=== PATIENT | male | born 1980 | race African-American/Black ===

== ENCOUNTER 2018-03-12 23:35 | Observation (INO) ==
[2018-03-13 00:26] LABS: Baso % (Auto) 0.4 % (0.0-2.0); Eos # (Auto) 0.1 th/mm3 (0.0-0.4); Eos % (Auto) 1.3 % (0.0-4.0); Hematocrit 34.2 % (39.0-51.0); Hemoglobin 11.9 gm/dL (13.0-17.0); Lymph # (Auto) 1.8 th/mm3 (1.0-4.8); Mean Corpuscular HGB Conc 34.7 % (32.0-36.0); Mean Corpuscular Hemoglobin 31.1 pg (27.0-34.0); Mean Corpuscular Volume 89.5 fL (80.0-100.0); Mean Platelet Volume 7.4 fL (7.0-11.0); Mono # (Auto) 0.8 th/mm3 (0.0-0.9); Neut # (Auto) 5.2 th/mm3 (1.8-7.7); Neut % (Auto) 65.3 % (16.0-70.0); Platelet Count 197 th/mm3 (150-450); Red Blood Count 3.82 mil/mm3 (4.50-5.90)
[2018-03-13 00:44] LABS: Alanine Aminotransferase 25 U/L (12-78); Albumin 2.9 g/dL (3.4-5.0); Anion Gap 9 meq/L (5-15); Aspartate Aminotransferase 24 U/L (15-37); Blood Urea Nitrogen 51 mg/dL (7-18); Calcium 7.6 mg/dL (8.5-10.1); Carbon Dioxide 31.5 meq/L (21.0-32.0); Chloride 99 meq/L (98-107); Glomerular Filtration Rate 5 mL/min (>89); Glucose,Random 145 mg/dL (74-106); Potassium 3.1 meq/L (3.5-5.1); Sodium 139 meq/L (136-145)
[2018-03-13 00:48] LABS: Alkaline Phosphatase 42 U/L (45-117); Creatine Kinase 368 U/L (39-308); Total Protein 7.4 g/dL (6.4-8.2); Troponin I 0.03 ng/mL (0.02-0.05)
--- NOTE | 2018-03-13 01:00 | CT ---
EXAM DATE: 03/13/2018 12:30 AM EDT AGE/SEX: 37 years / Male INDICATIONS: Patient fell tonight, complains of lower back pain. CLINICAL DATA: This is the patient's initial encounter. Patient reports that signs and symptoms have been present for 1 day and indicates a pain score of 3/10. MEDICAL/SURGICAL HISTORY: Congestive heart failure. Diabetes. Hypertension. . Peritoneal cath eter. RADIATION DOSE: 16.54 CTDI (mGy) COMPARISON: No prior exams available for comparison. TECHNIQUE: Multiple contiguous axial images were obtained through the abdomen. Images were obtained using multiple row detector helical technique. Using automated exposure control and adjustment of the mA and/or kV according to patient size, radiation dose was kept as low as reasonably achievable to o btain optimal diagnostic quality images. DICOM format image data is available electronically for rev iew and comparison. FINDINGS: Lower chest: No acute abnormality is identified. Hepatobiliary: Liver density is normal. No focal lesion is seen on this noncontrast examination. No c alcified gallstones are present. Kidneys: No hydronephrosis, stone, or mass. Adrenal Glands: Within normal limits. Spleen: Within normal limits. Pancreas: Within normal limits. Vascular: The aorta is nonaneurysmal. There is severe vascular calcification. Bowel/Mesentery: Stomach and small bowel demonstrate no abnormality. No colon abnormality is seen. Ap pendix is normal. There is a small volume of free fluid within the abdomen and pelvis. Peritoneal liz lysis catheter is looped in the left pelvis. Abdominal Wall: Peritoneal dialysis catheter exits the left mid abdomen superior to the umbilicus. Fl uid tracks along the catheter adjacent to the abdominal wall. Retroperitoneum: No lymphadenopathy. Bladder: No wall thickening or mass. Reproductive: No acute abnormality. There is vas deferens calcification. Inguinal: No lymphadenopathy or hernia. Musculoskeletal: No acute osseous abnormality is identified. CONCLUSION: 1. No acute finding is identified within the abdomen or pelvis. 2. There is a small volume of free fluid within the abdomen and pelvis which may be related to perit stewart dialysis. 3. Severe vascular calcification. Electronically signed by: Albert Abreu MD 03/13/2018 12:59 AM EDT
[2018-03-13 01:06] LABS: CKMB Percent 0.9 % (0.0-4.0); Creatine Kinase MB 3.2 ng/mL (0.5-3.6)
--- NOTE | 2018-03-13 02:09 | ED ---
HPI General Chief Complaint: Fall Stated Complaint: L Back Pain from a fall Time Seen by Provider: 03/12/18 23:58 History of Present Illness HPI Narrative: Patient is a 37-year-old male presents the emergency department after a trip and fall. He states he was walking across a road to go to a convenience store and stumbled he attempted to break his fall with his right hand which he does not complain about but he is more concerned because he came down on his stomach and he is a peritoneal dialysis patient. He is complaining of low back pain and would like to know that his dialysis catheter is intact. He has a significant cardiac history as well as history of CHF. Patient denies head injury or loss of consciousness. He denies any chest pain dizziness or abdominal pain prior to the fall and reinforces the fact several times that this was a trip and fall. Related Data Home Medications Medication Instructions Recorded Confirmed carvedilol 25 mg PO BID 03/13/18 03/13/18 diltiazem HCl mg PO DAILY 03/13/18 gabapentin 300 mg PO BID 03/13/18 03/13/18 glipizide 5 mg PO BID 03/13/18 03/13/18 hydrochlorothiazide 100 mg PO BID 03/13/18 03/13/18 isosorbide mononitrate 60 mg PO HS 03/13/18 03/13/18 lisinopril mg PO DAILY 03/13/18 nifedipine PO DAILY 03/13/18 potassium chloride PO DAILY 03/13/18 pravastatin mg PO DAILY 03/13/18 warfarin [Coumadin] 7.5 mg PO DAILY 03/13/18 03/13/18 Allergies Allergy/AdvReac Type Severity Reaction Status Date / Time shellfish derived Allergy Severe SWELLS UP Verified 03/13/18 02:01 Review of Systems ROS: all other systems reviewed are negative ENT Denies dizziness Cardiovascular Denies chest pain Respiratory Denies dyspnea Musculoskeletal Reports back pain Neurologic Denies vertigo, Denies frequent falls, Denies focal weakness, Denies numbness and Denies convulsions [facility] Medical History Medical History CHF (congestive heart failure) (Acute) Hyperlipidemia (Acute) Diabetes (Acute) HTN (hypertension) (Acute) Peritoneal dialysis catheter in place (Acute) A-fib (Acute) Renal failure (Acute) Surgical History Surgical History History of cardiac cath (Acute) Social History Social History Substance History: No History of Abuse Second Hand Smoke Exposure: No Smoking Status: Never smoker How Often Do You Have a Drink Containing Alcohol: Never Recent Travel in [facility] within the Last 8 Weeks: No Recent Out of Country Travel within the Last 8 Weeks: No Immunization History Tetanus Immunization: Unsure Hx Influenza Vaccine This Season: No Exam Narrative Exam Narrative: GENERAL: 37-year-old male in no distress SKIN: Focused skin assessment warm/dry. HEAD: Atraumatic. Normocephalic. EYES: Pupils equal and round. No scleral icterus. No injection or drainage. ENT: No nasal bleeding or discharge. Mucous membranes pink and moist. NECK: Trachea midline. No JVD. CARDIOVASCULAR: Regular rate and rhythm. No murmur appreciated. RESPIRATORY: No accessory muscle use. Clear to auscultation. Breath sounds equal bilaterally. GASTROINTESTINAL: Abdomen soft, non-tender, nondistended. Hepatic and splenic margins not palpable. MUSCULOSKELETAL: No obvious deformities. No clubbing. No cyanosis. No edema. NEUROLOGICAL: Awake and alert. No obvious cranial nerve deficits. Motor grossly within normal limits. Normal speech. Peritoneal dialysis catheter noted dressing intact Course Initial Documented Vital Signs Temperature 98.3 F 03/12/18 23:39 Pulse Rate 75 03/12/18 23:39 Respiratory Rate 18 03/12/18 23:39 Blood Pressure 251/119 H 03/12/18 23:39 Pulse Oximetry 99 03/12/18 23:39 Last Documented Vital Signs Temperature 98.3 F 03/12/18 23:39 Pulse Rate 62 03/13/18 04:00 Respiratory Rate 16 03/13/18 04:00 Blood Pressure 196/86 H 03/13/18 04:00 Pulse Oximetry 96 03/13/18 04:00 Medical Decision Making MDM Narrative Medical decision making narrative: Patient was seen and evaluated in the emergency department. He was found to have a low potassium, low calcium, low albumin. His creatinine is 13.14 which is consistent with his history of renal failure and dialysis. He is very hypertensive and remained very hypertensive despite being in the emergency department and receiving pain medication. He subsequently was admitted to [facility] service for observation. He is given p.o. potassium in the ER as well as IV calcium. Lab Data Result diagrams: 03/13/18 00:15 03/13/18 00:15 Lab Results 03/13/18 03/13/18 03/13/18 Range/Units 00:15 00:15 00:15 WBC 8.0 (4.0-11.0) th/mm3 RBC 3.82 L (4.50-5.90) mil/mm3 Hgb 11.9 L (13.0-17.0) gm/dL Hct 34.2 L (39.0-51.0) % MCV 89.5 (80.0-100.0) fL MCH 31.1 (27.0-34.0) pg MCHC 34.7 (32.0-36.0) % RDW 14.0 (11.6-17.2) % Plt Count 197 (150-450) th/mm3 MPV 7.4 (7.0-11.0) fL Neut % (Auto) 65.3 (16.0-70.0) % Lymph % (Auto) 23.0 (9.0-44.0) % Gregg % (Auto) 10.0 H (0.0-8.0) % Eos % (Auto) 1.3 (0.0-4.0) % Baso % (Auto) 0.4 (0.0-2.0) % Neut # (Auto) 5.2 (1.8-7.7) th/mm3 Lymph # (Auto) 1.8 (1.0-4.8) th/mm3 Gregg # (Auto) 0.8 (0.0-0.9) th/mm3 Eos # (Auto) 0.1 (0.0-0.4) th/mm3 Baso # (Auto) 0.0 (0.0-0.2) th/mm3 WBC Differential . Differential Comment Auto diff final Sodium 139 (136-145) meq/L Potassium 3.1 L (3.5-5.1) meq/L Chloride 99 (98-107) meq/L Carbon Dioxide 31.5 (21.0-32.0) meq/L Anion Gap 9 (5-15) meq/L BUN 51 H (7-18) mg/dL Creatinine 13.14 H* (0.60-1.30) mg/dL Estimated GFR 5 L (>89) mL/min Random Glucose 145 H (74-106) mg/dL Calcium 7.6 L (8.5-10.1) mg/dL Total Bilirubin 0.2 (0.2-1.0) mg/dL AST 24 (15-37) U/L ALT 25 (12-78) U/L Alkaline Phosphatase 42 L (45-117) U/L Total Creatine Kinase 368 H (39-308) U/L CK-MB (CK-2) 3.2 (0.5-3.6) ng/mL CK-MB (CK-2) % 0.9 (0.0-4.0) % Troponin I 0.03 (0.02-0.05) ng/mL B-Natriuretic Peptide 172 H (0-100) pg/mL Total Protein 7.4 (6.4-8.2) g/dL Albumin 2.9 L (3.4-5.0) g/dL Imaging Data Radiologist's impression: Abdomen/Pelvis CT 03/13/18 00:22 CONCLUSION: 1. No acute finding is identified within the abdomen or pelvis. 2. There is a small volume of free fluid within the abdomen and pelvis which may be related to peritoneal dialysis. 3. Severe vascular calcification. Discharge Plan Discharge Disposition Patient Disposition: 30 Still Patient Discharge Condition Condition: Stable Discharge Details Diagnosis: HTN (hypertension), Hypocalcemia, Hypokalemia Physicians Team ED Provider: Meaghan Laughlin Primary Care Provider: Irving Hamm Other Providers: Rito Fraire Rxs /Orders / Referrals /Forms Prescriptions: No Action carvedilol 25 mg Tablet 25 mg PO BID RF: 0 hydrochlorothiazide 50 mg Tablet 100 mg PO BID RF: 0 warfarin [Coumadin] 7.5 mg Tablet 7.5 mg PO DAILY RF: 0 potassium chloride 10 mEq Tablet Extended Release PO DAILY RF: 0 isosorbide mononitrate 60 mg Tablet Extended Release 24 Hr 60 mg PO HS RF: 0 pravastatin 10 mg Tablet PO DAILY RF: 0 nifedipine 10 mg Capsule PO DAILY RF: 0 gabapentin 300 mg Capsule 300 mg PO BID RF: 0 lisinopril 5 mg Tablet PO DAILY RF: 0 diltiazem HCl 30 mg Tablet PO DAILY RF: 0 glipizide 5 mg Tablet 5 mg PO BID RF: 0 Status ED Status: Ready for Discharge
[2018-03-13] MEDS ORDERED: hydrALAZINE HCl Inj 20 MG/ML Vial IV.PUSH ONE (04:50)
[2018-03-13] MEDS ORDERED: Temazepam 15 MG Capsule PO PRN (04:51)
[2018-03-13] MEDS ORDERED: Acetaminophen 325 MG Tablet PO PRN (04:51)
[2018-03-13] MEDS ORDERED: Bisacodyl 10 MG Supp RECTAL PRN (04:51)
[2018-03-13 06:54] LABS: Baso % (Auto) 0.4 % (0.0-2.0); Eos # (Auto) 0.1 th/mm3 (0.0-0.4); Eos % (Auto) 1.9 % (0.0-4.0); Hematocrit 30.6 % (39.0-51.0); Hemoglobin 10.6 gm/dL (13.0-17.0); Lymph # (Auto) 1.8 th/mm3 (1.0-4.8); Lymph % (Auto) 26.5 % (9.0-44.0); Mean Corpuscular HGB Conc 34.7 % (32.0-36.0); Mean Corpuscular Hemoglobin 31.1 pg (27.0-34.0); Mean Corpuscular Volume 89.7 fL (80.0-100.0); Mean Platelet Volume 7.5 fL (7.0-11.0); Mono # (Auto) 0.8 th/mm3 (0.0-0.9); Mono % (Auto) 11.9 % (0.0-8.0); Neut # (Auto) 3.9 th/mm3 (1.8-7.7); Neut % (Auto) 59.3 % (16.0-70.0); Platelet Count 180 th/mm3 (150-450); Red Blood Count 3.41 mil/mm3 (4.50-5.90); Red Cell Distribution Width 14.2 % (11.6-17.2); White Blood Count 6.6 th/mm3 (4.0-11.0)
[2018-03-13 07:20] LABS: Calcium 7.2 mg/dL (8.5-10.1); Carbon Dioxide 28.8 meq/L (21.0-32.0); Potassium 3.1 meq/L (3.5-5.1)
[2018-03-13 07:54] LABS: Total Protein 6.6 g/dL (6.4-8.2)
[2018-03-13] MEDS: Carvedilol 12.5 MG Tablet PO SCH ×2 (08:10→22:26)
[2018-03-13] MEDS: Gabapentin 300 MG Capsule PO SCH ×2 (08:10→22:26)
[2018-03-13] MEDS: dilTIAZem 30 MG Tablet PO SCH (08:10)
[2018-03-13] MEDS: NIFEdipine 10 MG Capsule PO SCH (08:10)
[2018-03-13] MEDS: Senna/Docusate Sodium 8.6/50 MG Tablet PO SCH ×2 (08:11→22:26)
[2018-03-13] MEDS ORDERED: Lisinopril 5 MG Tablet PO SCH (09:00)
[2018-03-13] MEDS ORDERED: Heparin 10,000 UNITS/10 ML Vial (for IV use) OTHER PRN (09:24)
[2018-03-13] MEDS: Isosorbide Mononitrate 60 MG ER 24HR Tablet (Imdur) PO SCH (09:25)
--- NOTE | 2018-03-13 10:23 | XR ---
EXAM DATE: 03/13/2018 10:19 AM EDT AGE/SEX: 37 years / Male INDICATIONS: Right hip pain post fall last night. CLINICAL DATA: This is the patient's initial encounter. Patient reports that signs and symptoms have been present for 2 days and indicates a pain score of 4/10. MEDICAL/SURGICAL HISTORY: . Renal failure, chronic. None. COMPARISON: [facility], XR SACROILIAC JOINTS, BILATERAL, 12/01/2015. . FINDINGS: Bony structures are intact and in normal alignment. Joints are intact without dislocation or signifi cant arthropathy. Osseous density is normal. Atherosclerotic calcification seen throughout the pelv is and thighs. Soft tissues are unremarkable. No radiopaque foreign bodies seen. CONCLUSION: Negative examination Electronically signed by: Darrell Lux MD 03/13/2018 10:22 AM EDT
--- NOTE | 2018-03-13 10:25 | XR ---
EXAM DATE: 03/13/2018 10:16 AM EDT AGE/SEX: 37 years / Male INDICATIONS: Lower back pain post fall last night. CLINICAL DATA: This is the patient's initial encounter. Patient reports that signs and symptoms have been present for 2 days and indicates a pain score of 10/10. MEDICAL/SURGICAL HISTORY: . Renal failure, chronic. None. COMPARISON: [facility], LUMBAR SPINE [facility], 03/08/2018. . FINDINGS: Mild scoliotic curvature is stable. No compression deformity. Disc spaces are well preserved through out. Mild facet arthropathy changes at L5-S1. Bone density is normal for age. Soft tissues are gita sly intact. CONCLUSION: No acute abnormality. Electronically signed by: Darrell Lux MD 03/13/2018 10:24 AM EDT
--- NOTE | 2018-03-13 11:17 | P.HP ---
History of Present Illness Service: Chief Complaint: Fall Stated Complaint: L Back Pain from a fall Time Seen by Provider: 03/12/18 23:58 History of Present Illness HPI Narrative: Patient is a 37-year-old male presents the emergency department after a trip and fall. He states he was walking across a road to go to a convenience store and stumbled he attempted to break his fall with his right hand which he does not complain about but he is more concerned because he came down on his stomach and he is a peritoneal dialysis patient. He is complaining of low back pain and would like to know that his dialysis catheter is intact. He has a significant cardiac history as well as history of CHF. Patient denies head injury or loss of consciousness. He denies any chest pain dizziness or abdominal pain prior to the fall and reinforces the fact several times that this was a trip and fall. Related Data Home Medications Medication Instructions Recorded Confirmed carvedilol 25 mg PO BID 03/13/18 03/13/18 diltiazem HCl mg PO DAILY 03/13/18 gabapentin 300 mg PO BID 03/13/18 03/13/18 glipizide 5 mg PO BID 03/13/18 03/13/18 hydrochlorothiazide 100 mg PO BID 03/13/18 03/13/18 isosorbide mononitrate 60 mg PO HS 03/13/18 03/13/18 lisinopril mg PO DAILY 03/13/18 nifedipine PO DAILY 03/13/18 potassium chloride PO DAILY 03/13/18 pravastatin mg PO DAILY 03/13/18 warfarin [Coumadin] 7.5 mg PO DAILY 03/13/18 03/13/18 Allergies Allergy/AdvReac Type Severity Reaction Status Date / Time shellfish derived Allergy Severe SWELLS UP Verified 03/13/18 02:01 Review of Systems ROS: all other systems reviewed are negative ENT Denies dizziness Cardiovascular Denies chest pain Respiratory Denies dyspnea Musculoskeletal Reports back pain Neurologic Denies vertigo, Denies frequent falls, Denies focal weakness, Denies numbness and Denies convulsions [facility] Medical History Medical History CHF (congestive heart failure) (Acute) Hyperlipidemia (Acute) Diabetes (Acute) HTN (hypertension) (Acute) Peritoneal dialysis catheter in place (Acute) A-fib (Acute) Renal failure (Acute) Surgical History Surgical History History of cardiac cath (Acute) Social History Social History Substance History: No History of Abuse Second Hand Smoke Exposure: No Smoking Status: Never smoker How Often Do You Have a Drink Containing Alcohol: Never Recent Travel in [facility] within the Last 8 Weeks: No Recent Out of Country Travel within the Last 8 Weeks: No Immunization History Tetanus Immunization: Unsure Hx Influenza Vaccine This Season: No Exam Narrative Exam Narrative: GENERAL: 37-year-old male in no distress SKIN: Focused skin assessment warm/dry. HEAD: Atraumatic. Normocephalic. EYES: Pupils equal and round. No scleral icterus. No injection or drainage. ENT: No nasal bleeding or discharge. Mucous membranes pink and moist. NECK: Trachea midline. No JVD. CARDIOVASCULAR: Regular rate and rhythm. No murmur appreciated. RESPIRATORY: No accessory muscle use. Clear to auscultation. Breath sounds equal bilaterally. GASTROINTESTINAL: Abdomen soft, non-tender, nondistended. Hepatic and splenic margins not palpable. MUSCULOSKELETAL: No obvious deformities. No clubbing. No cyanosis. No edema. NEUROLOGICAL: Awake and alert. No obvious cranial nerve deficits. Motor grossly within normal limits. Normal speech. Peritoneal dialysis catheter noted dressing intact Course Initial Documented Vital Signs Temperature 98.3 F 03/12/18 23:39 Pulse Rate 75 03/12/18 23:39 Respiratory Rate 18 03/12/18 23:39 Blood Pressure 251/119 H 03/12/18 23:39 Pulse Oximetry 99 03/12/18 23:39 Last Documented Vital Signs Temperature 98.3 F 03/12/18 23:39 Pulse Rate 62 03/13/18 04:00 Respiratory Rate 16 03/13/18 04:00 Blood Pressure 196/86 H 03/13/18 04:00 Pulse Oximetry 96 03/13/18 04:00 Medical Decision Making MDM Narrative Medical decision making narrative: Patient was seen and evaluated in the emergency department. He was found to have a low potassium, low calcium, low albumin. His creatinine is 13.14 which is consistent with his history of renal failure and dialysis. He is very hypertensive and remained very hypertensive despite being in the emergency department and receiving pain medication. He subsequently was admitted to [facility] service for observation. He is given p.o. potassium in the ER as well as IV calcium. Lab Data Result diagrams: 03/13/18 00:15 03/13/18 00:15 Lab Results 03/13/18 03/13/18 03/13/18 Range/Units 00:15 00:15 00:15 WBC 8.0 (4.0-11.0) th/mm3 RBC 3.82 L (4.50-5.90) mil/mm3 Hgb 11.9 L (13.0-17.0) gm/dL Hct 34.2 L (39.0-51.0) % MCV 89.5 (80.0-100.0) fL MCH 31.1 (27.0-34.0) pg MCHC 34.7 (32.0-36.0) % RDW 14.0 (11.6-17.2) % Plt Count 197 (150-450) th/mm3 MPV 7.4 (7.0-11.0) fL Neut % (Auto) 65.3 (16.0-70.0) % Lymph % (Auto) 23.0 (9.0-44.0) % [place] % (Auto) 10.0 H (0.0-8.0) % Eos % (Auto) 1.3 (0.0-4.0) % Baso % (Auto) 0.4 (0.0-2.0) % Neut # (Auto) 5.2 (1.8-7.7) th/mm3 Lymph # (Auto) 1.8 (1.0-4.8) th/mm3 [place] # (Auto) 0.8 (0.0-0.9) th/mm3 Eos # (Auto) 0.1 (0.0-0.4) th/mm3 Baso # (Auto) 0.0 (0.0-0.2) th/mm3 WBC Differential . Differential Comment Auto diff final Sodium 139 (136-145) meq/L Potassium 3.1 L (3.5-5.1) meq/L Chloride 99 (98-107) meq/L Carbon Dioxide 31.5 (21.0-32.0) meq/L Anion Gap 9 (5-15) meq/L BUN 51 H (7-18) mg/dL Creatinine 13.14 H* (0.60-1.30) mg/dL Estimated GFR 5 L (>89) mL/min Random Glucose 145 H (74-106) mg/dL Calcium 7.6 L (8.5-10.1) mg/dL Total Bilirubin 0.2 (0.2-1.0) mg/dL AST 24 (15-37) U/L ALT 25 (12-78) U/L Alkaline Phosphatase 42 L (45-117) U/L Total Creatine Kinase 368 H (39-308) U/L CK-MB (CK-2) 3.2 (0.5-3.6) ng/mL CK-MB (CK-2) % 0.9 (0.0-4.0) % Troponin I 0.03 (0.02-0.05) ng/mL B-Natriuretic Peptide 172 H (0-100) pg/mL Total Protein 7.4 (6.4-8.2) g/dL Albumin 2.9 L (3.4-5.0) g/dL Imaging Data Radiologist's impression: Abdomen/Pelvis CT 03/13/18 00:22 CONCLUSION: 1. No acute finding is identified within the abdomen or pelvis. 2. There is a small volume of free fluid within the abdomen and pelvis which may be related to peritoneal dialysis. 3. Severe vascular calcification. Discharge Plan Discharge Disposition Patient Disposition: 30 Still Patient Discharge Condition Condition: Stable Discharge Details Diagnosis: HTN (hypertension), Hypocalcemia, Hypokalemia Physicians Team ED Provider: Meaghan Laughlin Primary Care Provider: Irving Hamm Other Providers: Rito Fraire Rxs /Orders / Referrals /Forms Prescriptions: No Action carvedilol 25 mg Tablet 25 mg PO BID RF: 0 hydrochlorothiazide 50 mg Tablet 100 mg PO BID RF: 0 warfarin [Coumadin] 7.5 mg Tablet 7.5 mg PO DAILY RF: 0 potassium chloride 10 mEq Tablet Extended Release PO DAILY RF: 0 isosorbide mononitrate 60 mg Tablet Extended Release 24 Hr 60 mg PO HS RF: 0 pravastatin 10 mg Tablet PO DAILY RF: 0 nifedipine 10 mg Capsule PO DAILY RF: 0 gabapentin 300 mg Capsule 300 mg PO BID RF: 0 lisinopril 5 mg Tablet PO DAILY RF: 0 diltiazem HCl 30 mg Tablet PO DAILY RF: 0 glipizide 5 mg Tablet 5 mg PO BID RF: 0 Status ED Status: Ready for Discharge Primary Care Physician: Irving Hamm DO Chief Complaint: Status post fall History of Present Illness: This is a pleasant 37 y/o male who came to Emergency room after trip and fall, He states he was walking across a road to go to a convenience store and stumbled he attempted to break his fall with his right hand which he does not complain about but he is more concerned because he came down on his stomach and he is a peritoneal dialysis patient. He is complaining of low back pain and would like to know that his dialysis catheter is intact. He has a significant cardiac history as well as history of CHF. He denies Brain injury or Patient denies head injury or loss of consciousness. He denies any chest pain dizziness or abdominal pain prior to the fall and reinforces the fact several times that this was a trip and fall. Seen in Emergency room complaint of right hip pain and low back pain asked for X rays of this areas to follow also discussed with the patient about Radiation possible secondary to this x rays Review of Systems All other systems reviewed negative except as stated in HPI PMFSH - History History Provided By: Patient - Medical History Medical History: Medical History (Last Updated 03/13/18 @ 01:01 by Angella Magallanes RN) CHF (congestive heart failure) (Acute) Hyperlipidemia (Acute) Diabetes (Acute) HTN (hypertension) (Acute) Peritoneal dialysis catheter in place (Acute) A-fib Renal failure - Surgical History Surgical History: Surgical History (Last Updated 03/13/18 @ 00:18 by Angella Magallanes RN) History of cardiac cath - Tobacco History Second Hand Smoke Exposure: No Smoking Status: Never smoker - Alcohol History How Often Do You Have a Drink Containing Alcohol: Never - Substance Use History Substance History: No History of Abuse - Travel History Recent Travel in the [place] Within the Last 8 Weeks: No Recent Travel Out of the Country Within the Last 8 Weeks: No - Immunization History Tetanus Immunization: Unsure Hx Influenza Vaccine This Season: No Medications and Allergies Active Medications: Active Medications Acetaminophen (Tylenol) 650 mg PO Q4H PRN PRN Reason: Temp > 100.4 Al Hydroxide/Mg Hydroxide (Milk Of Magnesia Liq) 30 ml PO Q12H PRN PRN Reason: Mild Constipation Bisacodyl (Dulcolax Supp) 10 mg RECTAL DAILY PRN PRN Reason: SEVERE CONSITIPATION Carvedilol (Coreg) 25 mg PO BID [facility] Last Admin: 03/13/18 08:10 Dose: 25 mg Clonidine HCl (Catapres) 0.1 mg PO Q6H PRN PRN Reason: HYPERTENSION Last Admin: 03/13/18 09:11 Dose: 0.1 mg Diltiazem HCl (Cardizem) 30 mg PO DAILY [facility] Last Admin: 03/13/18 08:10 Dose: 30 mg Gabapentin (Neurontin) 300 mg PO BID [facility] Last Admin: 03/13/18 08:10 Dose: 300 mg Heparin Sodium (Porcine) (Heparin Inj) 1,000 units OTHER WITH DIALYSIS PRN PRN Reason: SEE LABEL COMMENTS Hydrochlorothiazide (Hydrodiuril) 100 mg PO BID [facility] Last Admin: 03/13/18 09:11 Dose: 100 mg Isosorbide Mononitrate (Imdur) 60 mg PO DAILY@0700 [facility] Last Admin: 03/13/18 09:25 Dose: 60 mg Lactulose (Lactulose Liq) 30 ml PO DAILY PRN PRN Reason: SEVERE CONSITIPATION Lisinopril (Prinivil) 5 mg PO DAILY [facility] Last Admin: 03/13/18 08:10 Dose: 5 mg Nifedipine (Procardia) 10 mg PO DAILY [facility] Last Admin: 03/13/18 08:10 Dose: 10 mg Ondansetron HCl (Zofran Inj) 4 mg IV.PUSH Q6H PRN PRN Reason: NAUSEA OR VOMITING Pravastatin Sodium (Pravachol) 10 mg PO DAILY [facility] Last Admin: 03/13/18 08:10 Dose: 10 mg Senna/Docusate Sodium (Soni-Colace) 1 tab PO BID [facility] Last Admin: 03/13/18 08:11 Dose: Not Given Sennosides (Senokot) 17.2 mg PO Q12H PRN PRN Reason: Moderate Constipation Sodium Chloride (Ns Flush) 10 ml IV.FLUSH UNSCH PRN PRN Reason: SEE LABEL COMMENTS Temazepam (Restoril) 15 mg PO HS PRN PRN Reason: INSOMNIA Allergies Allergy/AdvReac Type Severity Reaction Status Date / Time shellfish derived Allergy Severe SWELLS UP Verified 03/13/18 02:01 Home Medications Medication Instructions Recorded Confirmed Type carvedilol 25 mg PO BID 03/13/18 03/13/18 History diltiazem HCl mg PO DAILY 03/13/18 History gabapentin 300 mg PO BID 03/13/18 03/13/18 History glipizide 5 mg PO BID 03/13/18 03/13/18 History hydrochlorothiazide 100 mg PO BID 03/13/18 03/13/18 History isosorbide mononitrate 60 mg PO HS 03/13/18 03/13/18 History lisinopril mg PO DAILY 03/13/18 History nifedipine PO DAILY 03/13/18 History potassium chloride PO DAILY 03/13/18 History pravastatin mg PO DAILY 03/13/18 History warfarin [Coumadin] 7.5 mg PO DAILY 03/13/18 03/13/18 History Exam Vital signs: Vital Signs 03/12/18 23:39 03/12/18 23:42 03/13/18 00:04 Temperature 98.3 F Pulse Rate 75 72 Respiratory Rate 18 18 Blood Pressure 251/119 H Blood Pressure [Left Arm] 230/115 H Blood Pressure [Right Arm] 224/111 H Pulse Oximetry 99 97 03/13/18 01:00 03/13/18 02:00 03/13/18 04:00 Temperature Pulse Rate 70 68 62 Respiratory Rate 16 18 16 Blood Pressure 242/129 H 197/84 H 196/86 H Blood Pressure [Left Arm] Blood Pressure [Right Arm] Pulse Oximetry 97 97 96 03/13/18 06:00 03/13/18 07:25 03/13/18 08:00 Temperature Pulse Rate 61 62 61 Respiratory Rate 16 18 18 Blood Pressure 209/98 H 226/85 H 241/104 H Blood Pressure [Left Arm] Blood Pressure [Right Arm] Pulse Oximetry 96 99 95 03/13/18 09:03 03/13/18 09:16 Temperature Pulse Rate 61 62 Respiratory Rate 18 18 Blood Pressure 215/80 H 161/81 H Blood Pressure [Left Arm] Blood Pressure [Right Arm] Pulse Oximetry 95 95 Intake & Output 03/12/18 03/13/18 03/13/18 18:59 06:59 18:59 Weight 122 kg - Constitutional no acute distress, obese - Routine HEENT Exam Head: Present: normocephalic, atraumatic Eye: Present: EOMI, PERRL, normal accommodation ENT: Present: mucous membranes moist - Routine Neck Exam Present: supple, full ROM Results - Labs CBC & Chem 7: 03/13/18 06:31 03/13/18 06:31 Labs: Laboratory Results - last 24 hr 03/13/18 03/13/18 03/13/18 00:15 00:15 00:15 WBC 8.0 RBC 3.82 L Hgb 11.9 L Hct 34.2 L MCV 89.5 MCH 31.1 MCHC 34.7 RDW 14.0 Plt Count 197 MPV 7.4 Neut % (Auto) 65.3 Lymph % (Auto) 23.0 [place] % (Auto) 10.0 H Eos % (Auto) 1.3 Baso % (Auto) 0.4 Neut # (Auto) 5.2 Lymph # (Auto) 1.8 [place] # (Auto) 0.8 Eos # (Auto) 0.1 Baso # (Auto) 0.0 WBC Differential . Differential Comment Auto diff final Sodium 139 Potassium 3.1 L Chloride 99 Carbon Dioxide 31.5 Anion Gap 9 BUN 51 H Creatinine 13.14 H* Estimated GFR 5 L Random Glucose 145 H Calcium 7.6 L Prot Corrected Calcium Total Bilirubin 0.2 AST 24 ALT 25 Alkaline Phosphatase 42 L Total Creatine Kinase 368 H CK-MB (CK-2) 3.2 CK-MB (CK-2) % 0.9 Troponin I 0.03 B-Natriuretic Peptide 172 H Total Protein 7.4 Albumin 2.9 L 03/13/18 03/13/18 06:31 06:31 WBC 6.6 RBC 3.41 L Hgb 10.6 L Hct 30.6 L MCV 89.7 MCH 31.1 MCHC 34.7 RDW 14.2 Plt Count 180 MPV 7.5 Neut % (Auto) 59.3 Lymph % (Auto) 26.5 [place] % (Auto) 11.9 H Eos % (Auto) 1.9 Baso % (Auto) 0.4 Neut # (Auto) 3.9 Lymph # (Auto) 1.8 [place] # (Auto) 0.8 Eos # (Auto) 0.1 Baso # (Auto) 0.0 WBC Differential . Differential Comment Auto diff final Sodium 138 Potassium 3.1 L Chloride 98 Carbon Dioxide 28.8 Anion Gap 11 BUN 50 H Creatinine 12.57 H* Estimated GFR 5 L Random Glucose 123 H Calcium 7.2 L* Prot Corrected Calcium 7.5 L Total Bilirubin AST ALT Alkaline Phosphatase Total Creatine Kinase CK-MB (CK-2) CK-MB (CK-2) % Troponin I B-Natriuretic Peptide Total Protein 6.6 D Albumin - Imaging Impressions Hip X-Ray 03/13/18 00:00 CONCLUSION: Negative examination Lumbar Spine X-Ray 03/13/18 00:00 CONCLUSION: No acute abnormality. Abdomen/Pelvis CT 03/13/18 00:22 CONCLUSION: 1. No acute finding is identified within the abdomen or pelvis. 2. There is a small volume of free fluid within the abdomen and pelvis which may be related to peritoneal dialysis. 3. Severe vascular calcification. Caprini VTE Risk Assessment Caprini VTE Risk Assessment: Moderate/High Risk (score >= 2) Caprini Risk Assessment Model: Point Value = 1 Point Value = 2 Point Value = 3 Point Value = 5 Age 41-60 Minor surgery BMI > 25 kg/m2 Swollen legs Varicose veins or History of unexplained or recurrent spontaneous Oral contraceptives or hormone replacement Sepsis (< 1 month) Serious lung disease, including pneumonia (< 1 month) Abnormal pulmonary function Acute myocardial infarction Congestive heart failure (< 1 month) History of inflammatory bowel disease Medical patient at bed rest Age 61-74 Arthroscopic surgery Major open surgery (> 45 min) Laparoscopic surgery (> 45 min) Malignancy Confined to bed (> 72 hours) Immobilizing plaster cast Central venous access Age >= 75 History of VTE Family history of VTE Factor V Leiden Prothrombin [id number] Lupus anticoagulant Anticardiolipin antibodies Elevated serum homocysteine Heparin-induced thrombocytopenia Other congenital or acquired thrombophilia Stroke (< 1 month) Elective arthroplasty Hip, pelvis, or leg fracture Acute spinal cord injury (< 1 month) Prophylaxis Regimen: Total Risk Factor Score Risk Level Prophylaxis Regimen 0-1 Low Early ambulation 2 Moderate Order ONE of the following: *Sequential Compression Device (SCD) *Heparin 5000 units SQ BID 3-4 Higher Order ONE of the following medications: *Heparin 5000 units SQ TID *Enoxaparin/Lovenox 40 mg SQ daily (WT < 150 kg, CrCl > 30 mL/min) *Enoxaparin/Lovenox 30 mg SQ daily (WT < 150 kg, CrCl > 10-29 mL/min) *Enoxaparin/Lovenox 30 mg SQ BID (WT < 150 kg, CrCl > 30 mL/min) AND/OR *Sequential Compression Device (SCD) 5 or more Highest Order ONE of the following medications: *Heparin 5000 units SQ TID (Preferred with Epidurals) *Enoxaparin/Lovenox 40 mg SQ daily (WT < 150 kg, CrCl > 30 mL/min) *Enoxaparin/Lovenox 30 mg SQ daily (WT < 150 kg, CrCl > 10-29 mL/min) *Enoxaparin/Lovenox 30 mg SQ BID (WT < 150 kg, CrCl > 30 mL/min) AND *Sequential Compression Device (SCD) Assessment and Plan - Plan 1. Status post fall the patient was concerned about his Peritoneal catheter and a CT abdomen and pelvis was performed not found acute pathology if he is discharged later today no need for Peritoneal dialysis in house may be done at home 2. Pain on Right hip and lower spine asked for X rays 3. CHF history not exacerbated. 4. Hyperlipidemia continue Home medicines 5. DM II continue sliding scale ADA diet 6. Hypertensive urgency patient is not taking his home medicines at this time improved 7. Peritoneal dialysis catheter in place 8. Atrial fibrillation at this time sinus rhythm 9. ESRD on Peritoneal Dialysis. Code Status: Full Code. Discussed Condition With: patient and Nurse in Emergency room.
--- NOTE | 2018-03-13 17:18 | P.CONNP ---
History of Present Illness Service: Nephrology Reason for Consult: ESRD Primary Care Provider: Irving Hamm DO Family Provider: Irving Hamm DO Chief Complaint: Status post fall History of Present Illness: Mr. Matos is a 37 year old male with history of ESRD for which he is on PD. He apparently fell after tripping. He did not lose consciousness. He was seen in the ER after the fall. He was admitted to the hospital because his BP was high. Patient has history of hypertension and diabetes. Also apparently has CHF. Review of Systems Cardiovascular: Denies chest pain Respiratory: Denies chest congestion, Denies cough, Denies coughing up blood, Denies pain on inspiration, Denies shortness of breath Gastrointestinal: Denies abdominal pain Musculoskeletal: Reports back pain, Denies abnormal walking Neurologic: Denies loss of vision PMFSH - History History Provided By: Patient - Medical History Medical History: Medical History (Last Updated 03/13/18 @ 01:01 by Angella Magallanes RN) CHF (congestive heart failure) (Acute) Hyperlipidemia (Acute) Diabetes (Acute) HTN (hypertension) (Acute) Peritoneal dialysis catheter in place (Acute) A-fib Renal failure - Surgical History Surgical History: Surgical History (Last Updated 03/13/18 @ 00:18 by Angella Magallanes RN) History of cardiac cath - Tobacco History Second Hand Smoke Exposure: No Smoking Status: Never smoker - Alcohol History How Often Do You Have a Drink Containing Alcohol: Never - Substance Use History Substance History: No History of Abuse - Travel History Recent Travel in the [place] Within the Last 8 Weeks: No Recent Travel Out of the Country Within the Last 8 Weeks: No - Immunization History Tetanus Immunization: Unsure Hx Influenza Vaccine This Season: No Medications and Allergies Active Medications: Active Medications Acetaminophen (Tylenol) 650 mg PO Q4H PRN PRN Reason: Temp > 100.4 Al Hydroxide/Mg Hydroxide (Milk Of Magnesia Liq) 30 ml PO Q12H PRN PRN Reason: Mild Constipation Bisacodyl (Dulcolax Supp) 10 mg RECTAL DAILY PRN PRN Reason: SEVERE CONSITIPATION Carvedilol (Coreg) 25 mg PO BID [facility] Last Admin: 03/13/18 08:10 Dose: 25 mg Clonidine HCl (Catapres) 0.1 mg PO Q6H PRN PRN Reason: HYPERTENSION Last Admin: 03/13/18 17:06 Dose: 0.1 mg Diltiazem HCl (Cardizem) 30 mg PO DAILY [facility] Last Admin: 03/13/18 08:10 Dose: 30 mg Gabapentin (Neurontin) 300 mg PO BID [facility] Last Admin: 03/13/18 08:10 Dose: 300 mg Heparin Sodium (Porcine) (Heparin Inj) 1,000 units OTHER WITH DIALYSIS PRN PRN Reason: SEE LABEL COMMENTS Hydrochlorothiazide (Hydrodiuril) 100 mg PO BID [facility] Last Admin: 03/13/18 09:11 Dose: 100 mg Isosorbide Mononitrate (Imdur) 60 mg PO DAILY@0700 [facility] Last Admin: 03/13/18 09:25 Dose: 60 mg Lactulose (Lactulose Liq) 30 ml PO DAILY PRN PRN Reason: SEVERE CONSITIPATION Lisinopril (Prinivil) 5 mg PO DAILY [facility] Last Admin: 03/13/18 08:10 Dose: 5 mg Nifedipine (Procardia) 10 mg PO DAILY [facility] Last Admin: 03/13/18 08:10 Dose: 10 mg Ondansetron HCl (Zofran Inj) 4 mg IV.PUSH Q6H PRN PRN Reason: NAUSEA OR VOMITING Pravastatin Sodium (Pravachol) 10 mg PO DAILY [facility] Last Admin: 03/13/18 08:10 Dose: 10 mg Senna/Docusate Sodium (Soni-Colace) 1 tab PO BID [facility] Last Admin: 03/13/18 08:11 Dose: Not Given Sennosides (Senokot) 17.2 mg PO Q12H PRN PRN Reason: Moderate Constipation Sodium Chloride (Ns Flush) 10 ml IV.FLUSH UNSCH PRN PRN Reason: SEE LABEL COMMENTS Temazepam (Restoril) 15 mg PO HS PRN PRN Reason: INSOMNIA Warfarin Sodium (Coumadin) 7.5 mg PO DAILY [facility] Allergies Allergy/AdvReac Type Severity Reaction Status Date / Time shellfish derived Allergy Severe SWELLS UP Verified 03/13/18 02:01 Home Medications Medication Instructions Recorded Confirmed Type carvedilol 25 mg PO BID 03/13/18 03/13/18 History diltiazem HCl mg PO DAILY 03/13/18 History gabapentin 300 mg PO BID 03/13/18 03/13/18 History glipizide 5 mg PO BID 03/13/18 03/13/18 History hydrochlorothiazide 100 mg PO BID 03/13/18 03/13/18 History isosorbide mononitrate 60 mg PO HS 03/13/18 03/13/18 History lisinopril mg PO DAILY 03/13/18 History nifedipine PO DAILY 03/13/18 History potassium chloride PO DAILY 03/13/18 History pravastatin mg PO DAILY 03/13/18 History warfarin [Coumadin] 7.5 mg PO DAILY 03/13/18 03/13/18 History Exam Vital signs: Vital Signs 03/12/18 23:39 03/12/18 23:42 03/13/18 00:04 Temperature 98.3 F Pulse Rate 75 72 Respiratory Rate 18 18 Blood Pressure 251/119 H Blood Pressure [Left Arm] 230/115 H Blood Pressure [Right Arm] 224/111 H Pulse Oximetry 99 97 03/13/18 01:00 03/13/18 02:00 03/13/18 04:00 Temperature Pulse Rate 70 68 62 Respiratory Rate 16 18 16 Blood Pressure 242/129 H 197/84 H 196/86 H Blood Pressure [Left Arm] Blood Pressure [Right Arm] Pulse Oximetry 97 97 96 03/13/18 06:00 03/13/18 07:25 03/13/18 08:00 Temperature Pulse Rate 61 62 61 Respiratory Rate 16 18 18 Blood Pressure 209/98 H 226/85 H 241/104 H Blood Pressure [Left Arm] Blood Pressure [Right Arm] Pulse Oximetry 96 99 95 03/13/18 09:03 03/13/18 09:16 03/13/18 12:00 Temperature 97.3 F L Pulse Rate 61 62 60 Respiratory Rate 18 18 20 Blood Pressure 215/80 H 161/81 H 180/83 H Blood Pressure [Left Arm] Blood Pressure [Right Arm] Pulse Oximetry 95 95 98 Intake & Output 03/12/18 03/13/18 03/13/18 18:59 06:59 18:59 Weight 122 kg - Constitutional no acute distress - Routine HEENT Exam Head: Present: normocephalic, atraumatic Eye: Present: EOMI, PERRL ENT: Present: mucous membranes moist - Routine Neck Exam Present: supple, full ROM. Absent: JVD, carotid bruit, lymphadenopathy, thyromegaly - Routine Chest/Breast/Axilla Exam Chest wall: Absent: tenderness, mass - Routine Respiratory Exam Present: CTA bilaterally - Routine Cardiovascular Exam Present: RRR, S1, S2 - Routine Abdominal Exam Present: soft, normoactive bowel sounds Comments: PD catheter in place. - Routine Extremities Exam Absent: edema, full ROM, AV fistula - Routine Skin Exam Present: intact - Routine Neurological Exam Present: alert, oriented X3, CN II-XII intact, hearing grossly intact, normal speech. Absent: tremors Results - Lab Results 03/13/18 06:31 03/13/18 06:31 Most recent lab results Calcium 7.2 mg/dL (8.5-10.1) L* 03/13/18 06:31 Assessment and Plan - Assessment (1) ESRD (end stage renal disease) on dialysis Code(s): N18.6 - End stage renal disease; Z99.2 - Dependence on renal dialysis Status: Acute Plan: PD orders entered. He does use cycler, 5 cycles, 3 liters fill volume, last fill of 2500 with mid day exchange. We will use 2.5% dextrose PD solution. Monitor fluid and electrolytes. (2) Hypocalcemia Code(s): E83.51 - Hypocalcemia Status: Acute Plan: could be due to coexisting hyperphosphatemia. Avoid IV replacement. Monitor phosphorus level. (3) Hypokalemia Code(s): E87.6 - Hypokalemia Status: Acute Plan: Replacement ordered. (4) CHF (congestive heart failure) Code(s): I50.9 - Heart failure, unspecified Status: Acute Plan: Fluid management with dialysis. Currently compensated. (5) Diabetes Code(s): E11.9 - Type 2 diabetes mellitus without complications Status: Acute Plan: insulin coverage as needed, maintain blood sugar between 140 and 180 while hospitalized. (6) HTN (hypertension) Code(s): I10 - Essential (primary) hypertension Status: Acute Plan: BP is high, but hopefully will improve after administering his antihypertensives. - Attending Attestation Patient can be discharged from renal standpoint if his BP is less than 170/90. (6) HTN (hypertension) Qualifiers: Hypertension type: unspecified Qualified Code(s): I10 - Essential (primary) hypertension
[2018-03-13] MEDS ORDERED: [UNRECOGNIZED DRUG - REMARK] OTHER SCH (21:00)
[2018-03-13] MEDS ORDERED: Isosorbide Mononitrate 60 MG ER 24HR Tablet (Imdur) PO SCH (21:00)
[2018-03-14 05:12] LABS: Albumin 2.5 g/dL (3.4-5.0); Calcium 7.7 mg/dL (8.5-10.1); Carbon Dioxide 30.4 meq/L (21.0-32.0); Potassium 3.1 meq/L (3.5-5.1)
[2018-03-14 05:13] LABS: Phosphorus 5.6 mg/dL (2.5-4.9)
[2018-03-14] MEDS: Isosorbide Mononitrate 60 MG ER 24HR Tablet (Imdur) PO SCH (07:40)
--- NOTE | 2018-03-14 09:19 | P.PN ---
Subjective Interval history: Nursing denies any deterioration since last night. Patient reports that the Percocet he got yesterday made him very drowsy. Says his back pain is better. Says he does not have any wrist pain, just a little shoulder pain. Physical Exam Vital signs: Vital Signs 03/13/18 12:00 03/13/18 16:00 03/13/18 20:00 Temperature 97.3 F L 97.9 F 99 F Pulse Rate 60 60 61 Respiratory Rate 20 20 15 Blood Pressure 180/83 H 224/114 H 162/75 H Pulse Oximetry 98 98 97 03/14/18 00:00 03/14/18 04:00 Temperature 97.7 F 97.4 F L Pulse Rate 61 61 Respiratory Rate 20 20 Blood Pressure 150/92 H 159/70 H Pulse Oximetry 97 97 Intake & Output 03/13/18 03/14/18 03/14/18 18:59 06:59 18:59 Intake Total 420 / 420 Output Total 700 / 700 2009 Balance -280 / -280 -2009 Weight 124.3 kg Intake: Oral 420 / 420 Output: Urine 700 / 700 Peritoneal Amount 2009 Other: Weight On Admission 124.1 kg Narrative: Peritoneal dialysis catheter in place over abdomen. Lying in bed, no acute distress, clear lungs bilaterally Has a small pimple on left pinna, no left ear edema or erythema otherwise Has lumbar tenderness to palpation over midline and paraspinal areas Has intact straight leg raising bilaterally Is able to raise his right shoulder up anteriorly with mild pain Results - Labs CBC & Chem 7: 03/13/18 06:31 03/14/18 03:25 Laboratory Results - last 24 hr 03/14/18 03:25 Sodium 138 Potassium 3.1 L Chloride 98 Carbon Dioxide 30.4 Anion Gap 10 BUN 55 H Creatinine 12.45 H* Estimated GFR 6 L Random Glucose 212 H Calcium 7.7 L Phosphorus 5.6 H Albumin 2.5 L - Imaging Impressions Hip X-Ray 03/13/18 00:00 CONCLUSION: Negative examination Lumbar Spine X-Ray 03/13/18 00:00 CONCLUSION: No acute abnormality. Assessment and Plan - Plan 1. Status post fall the patient was concerned about his Peritoneal catheter and a CT abdomen and pelvis was performed not found acute pathology if he is discharged later today no need for Peritoneal dialysis in house may be done at home 2. Pain on Right hip and lower spine asked for X rays -contusion injury. Plain films are negative for any fractures or dislocations. 3. CHF history not exacerbated. 4. Hyperlipidemia continue Home medicines 5. DM II continue sliding scale ADA diet 6. Hypertensive urgency patient is not taking his home medicines at this time improved -pressures improved since admission, asymptomatic. 7. Peritoneal dialysis catheter in place 8. Atrial fibrillation at this time sinus rhythm 9. ESRD on Peritoneal Dialysis. Patient has met maximal benefit from hospitalization and is clinically stable for discharge.
[2018-03-14] MEDS: NIFEdipine 10 MG Capsule PO SCH (10:34)
[2018-03-14] MEDS: Carvedilol 12.5 MG Tablet PO SCH (10:35)
[2018-03-14] MEDS: Gabapentin 300 MG Capsule PO SCH (10:35)
[2018-03-14] MEDS: dilTIAZem 30 MG Tablet PO SCH (10:35)
[2018-03-14] MEDS: Senna/Docusate Sodium 8.6/50 MG Tablet PO SCH (10:35)
[2018-03-15] MEDS ORDERED: Lisinopril 20 MG Tablet PO SCH (09:00)
== END 2018-03-14 11:57 | disposition home or self-care (01) ==
LOC: NEPC 23:35 → NEDA 23:35 → N04 23:35
PROVIDERS: ADMIT Hospitalist; ATTEND Hospitalist
DX: E78.5 Hyperlipidemia, unspecified; W01.0XXA Fall on same level from slipping, tripping and stumbling without subsequent striking against object, initial encounter; I16.0 Hypertensive urgency; I13.2 Hypertensive heart and chronic kidney disease with heart failure and with stage 5 chronic kidney disease, or end stage renal disease; N18.6 End stage renal disease; E87.6 Hypokalemia; I50.9 Heart failure, unspecified; Z79.899 Other long term (current) drug therapy; Z99.2 Dependence on renal dialysis; E83.51 Hypocalcemia; Z79.01 Long term (current) use of anticoagulants; M54.5 Low back pain; E11.22 Type 2 diabetes mellitus with diabetic chronic kidney disease; M25.551 Pain in right hip